=== PATIENT | female | born 1935 | race Two or more races ===

== ENCOUNTER 2023-09-23 05:25 | Day surgery (SDC) | payer OTHER ==
[2023-09-23] MEDS ORDERED: EPINEPHRINE HCL/PF 1 MG/ML AMPUL IR ONE (08:30)
[2023-09-23] MEDS ORDERED: POVIDONE-IODINE 118 ML BOTT TOP ONE (08:30)
[2023-09-23] MEDS ORDERED: CEFAZOLIN SODIUM 1,000 MG VIAL IV ONE (08:30)
[2023-09-23] MEDS ORDERED: IBU600 MG PO (09:09)
[2023-09-23] MEDS ORDERED: NEURONTIN300 MG PO (09:10)
[2023-09-23] MEDS ORDERED: SURFAK240 M1 PO (09:11)
[2023-09-23] MEDS ORDERED: BACTRIM DS TAB1 EACH PO (09:11)
== END 2023-09-23 15:20 | disposition home or self-care (01) ==
LOC: CIR.AMB 05:25
PROVIDERS: ATTEND Obstetrics & Gynecology Gynecology
DX: N81.3 Complete uterovaginal prolapse (principal)